=== PATIENT | male | born 1990 | race Two or more races ===

== ENCOUNTER 2019-01-14 15:02 | Emergency (ER) | payer OTHER ==
[~2019-01-14] VITALS: Ht 172.7 cm; Wt 68.9 kg
[2019-01-14 15:36] VITALS: BP 134/99
--- NOTE | 2019-01-14 15:40 | Emergency Room Report ---
History of Present Illness General Chief Complaint: Skin Rash/Abscess Source: Patient Present Illness HPI 28-year-old male with no significant past medical history here complaining of 2 days of pain and swelling in the anal area. Patient reports that he has been constipated for the past several days and reported that he started feeling a painful mass coming from the anal area. Denies any bleeding through the rectum. Denies any pus drainage. Denies fever and chills, chest pain, shortness of breath, palpitation, no other associated symptoms. Is up-to-date with tetanus shot. Has not taken medication for symptom relief. An external hemorrhoid with perianal abscess noted however not enough to be drained as it may irritates the external hemorrhoid. Allergies: Coded Allergies: No Known Allergies (Unverified , 01/14/19) Patient History Past Medical History: see triage record Past Surgical History: none Pertinent Family History: none Immunizations: UTD Reviewed Nursing Documentation: PMH: Agreed; PSxH: Agreed Nursing Documentation-PMH Past Medical History: No Stated History Review of Systems All Other Systems: negative except mentioned in HPI Physical Exam Vital Signs Date Time Temp Pulse Resp B/P (MAP) Pulse Ox O2 Delivery O2 Flow Rate FiO2 01/14/19 15:16 98.4 94 18 134/99 (111) 95 Room Air Sp02 EP Interpretation: reviewed, normal General Appearance: no apparent distress, alert, GCS 15, non-toxic Head: normocephalic, atraumatic Eyes: bilateral eye normal inspection, bilateral eye PERRL ENT: hearing grossly normal, normal pharynx, no angioedema, normal voice Neck: full range of motion, supple/symm/no masses Respiratory: chest non-tender, lungs clear, normal breath sounds, no rhonchi, no wheezing, speaking full sentences Cardiovascular #1: regular rate, rhythm, no edema, no murmur, normal capillary refill Gastrointestinal: normal inspection, normal bowel sounds, non tender, soft, no mass, no organomegaly, no peritonitis, no bruit, non-distended Rectal: other - External hemorrhoids, with perianal abscess, around the hemorrhoid Genitourinary: no CVA tenderness Musculoskeletal: normal inspection, back normal, digits/nails normal, gait/ station normal Neurologic: alert, oriented x3, responsive, motor strength/tone normal, sensory intact, speech normal Psychiatric: judgement/insight normal, memory normal, mood/affect normal, no suicidal/homicidal ideation Skin: no rash Lymphatic: no adenopathy Medical Decision Making PA Attestation All my diagnosis and treatment plans were reviewed ad discussed with my supervising physician Dr. man Diagnostic Impression: Primary Impression: External hemorrhoid Additional Impression: Perianal abscess ER Course 28-year-old male with no significant past medical history here complaining of 2 days of pain and swelling in the anal area. Patient reports that he has been constipated for the past several days and reported that he started feeling a painful mass coming from the anal area. Denies any bleeding through the rectum. Denies any pus drainage. Denies fever and chills, chest pain, shortness of breath, palpitation, no other associated symptoms. Is up-to-date with tetanus shot. Has not taken medication for symptom relief. An external hemorrhoid with perianal abscess noted however not enough to be drained as it may irritates the external hemorrhoid. Ddx considered but are not limited to : Perianal abscess, cyst, external hemorrhoid, thrombosed hemorrhoid, internal hemorrhoid, AV fistula Vital signs: are WNL, pt. is afebrile H&PE are most consistent with: External hemorrhoid without bleeding, perianal abscess ORDERS: Keflex, ibuprofen 800, Anusol, Colace ED INTERVENTIONS: Toradol, Keflex DISCHARGE: At this time pt. is stable for d/c to home. Will provide printed patient care instructions, and any necessary prescriptions. Care plan and follow up instructions have been discussed with the patient prior to discharge. Patient take medication as directed, increase oral hydration as well as fiber intake to prevent constipation. Also follow-up with your primary care provider for referral to specialist in case there is any AV fistula formation. At this time it is not advised to drain in the perianal abscess as it is very internal and behind the external hemorrhoid. However I recommended that patient to return to the emergency room if no improvement with antibiotics as well as the new onset of symptoms such as fever and chills or pus drainage. Patient agrees with the above treatment. Last Vital Signs Date Time Temp Pulse Resp B/P (MAP) Pulse Ox O2 Delivery O2 Flow Rate FiO2 01/14/19 15:16 98.4 94 18 134/99 (111) 95 Room Air Disposition: HOME, SELF-CARE Condition: Stable Scripts Docusate Sodium* (COLACE*) 100 Mg Capsule 100 MG ORAL THREE TIMES A DAY for 5 Days, #15 CAP Prov: Jalyn Gamble 01/14/19 Hydrocortisone Hc 2.5% Cream (ANUSOL-HC 2.5% CREAM) Y Cr 2 GM RC TID, #30 GM Prov: Jalyn Gamble 01/14/19 Ibuprofen (Ibu) 800 Mg Tablet 800 MG PO TID, #30 TAB Prov: Jalyn Gamble 01/14/19 Cephalexin* (KEFLEX*) 500 Mg Capsule 500 MG ORAL EVERY 6 HOURS for 7 Days, #28 CAP Prov: Jalyn Gamble 01/14/19 Patient Instructions: Abscess, Hemorrhoids, [id number] Additional Instructions: Take medication as directed, follow-up with your primary care provider, if worsening symptoms return to emergency room. It is not advised to drain the perianal abscess take antibiotics first and if no improvement return to the emergency room. Jalyn Gamble Jan 14, 2019 15:40
[2019-01-14] MEDS ORDERED: ANUSOL-HC30 GM RC (15:42)
[2019-01-14] MEDS ORDERED: CEPHALEXIN500 MG ORAL (15:42)
[2019-01-14] MEDS ORDERED: COLACE100 MG ORAL (15:42)
[2019-01-14] MEDS ORDERED: IBU800 MG PO (15:42)
[2019-01-14] MEDS ORDERED: Ketorolac 30mg Inj IV ONE (15:45)
[2019-01-14] MEDS ORDERED: Cephalexin 500mg cap ORAL ONE (15:45)
[2019-01-14 16:12] VITALS: BP 134/99
== END 2019-01-14 16:00 | disposition home or self-care (01) ==
LOC: EMR 15:45
DX: K61.0 Anal abscess (principal); K64.4 Residual hemorrhoidal skin tags
CPT/HCPCS: 96374; J1885; Z7502; 99284